=== PATIENT | female | born 1940 | race Two or more races ===

== ENCOUNTER 2018-12-28 12:10 | Outpatient (CLI) | payer OTHER ==
[~2018-12-28 12:10] MED LIST: PRILOSEC10 MG; XARELTO10 MG
== END 2018-12-28 17:00 | disposition home or self-care (01) ==
LOC: MRI 12:10
DX: I73.9 Peripheral vascular disease, unspecified (principal)
CPT/HCPCS: 70545; 70548; 70551; A9575; 70544

== ENCOUNTER 2020-10-24 08:33 | Outpatient (CLI) | payer OTHER | END 2020-10-24 08:44 | disposition home or self-care (01) | LOC: TOM 08:33 | PROVIDERS: ATTEND Internal Medicine Pulmonary Disease | DX: J12.81 Pneumonia due to SARS-associated coronavirus (principal); Z86.16 Personal history of COVID-19 ==

== ENCOUNTER 2021-03-26 08:36 | Outpatient (CLI) | payer OTHER | END 2021-03-26 11:18 | disposition home or self-care (01) | LOC: SONOGRAMA 08:36 | PROVIDERS: ATTEND Pathology Anatomic Pathology & Clinical Pathology | DX: D34 Benign neoplasm of thyroid gland (principal); E04.2 Nontoxic multinodular goiter; E07.89 Other specified disorders of thyroid ==